=== PATIENT | female | born 1940 | race American Indian/Alaskan Native ===

== ENCOUNTER 2019-12-16 08:01 | Outpatient (CLI) | payer MEDICARE, OTHER ==
[2019-12-16 11:41] LABS: BASOPHILS # (AUTO) 0.1 10^3/uL (0.0-0.1); BASOPHILS % (AUTO) 1.2 %; EOSINOPHILS # (AUTO) 0.1 10^3/uL (0.0-0.7); EOSINOPHILS % (AUTO) 2.6 %; HGB - HEMOGLOBIN 13.7 g/dL (12.0-16.0); LYMPHOCYTES # (AUTO) 1.2 10^3/uL (1.5-3.5); LYMPHOCYTES % (AUTO) 27.6 %; MEAN CORPUSCULAR HEMOGLOBIN 31.8 pg (27.0-31.0); MEAN CORPUSCULAR HGB CONC 32.5 g/dL (32.0-36.0); MEAN CORPUSCULAR VOLUME 97.9 fL (81.0-99.0); MEAN PLATELET VOLUME 10.5 fL (7.9-10.8); MONOCYTES # (AUTO) 0.6 10^3/uL (0.0-1.0); MONOCYTES % (AUTO) 14.9 %; NEUTROPHILS # (AUTO) 2.3 10^3/uL (1.5-6.6); NEUTROPHILS % (AUTO) 53.5 %; PLT - PLATELET COUNT 219 10^3/uL (130-450); RED BLOOD COUNT 4.31 10^6/uL (4.20-5.40); RED CELL DISTRIBUTION WIDTH 12.6 % (12.0-15.0); WHITE BLOOD COUNT 4.2 x10^3/uL (4.8-10.8)
[2019-12-16 11:54] LABS: ALBUMIN/GLOBULIN RATIO 1.3 (1.0-2.2); ALKALINE PHOSPHATASE 56 IU/L (42-121); ALT ALANINE AMINOTRANSFERASE 17 IU/L (10-60); AST ASPARTATE AMINOTRANSFERASE 23 IU/L (10-42); BILIRUBIN,TOTAL 0.7 mg/dL (0.2-1.0); BUN - BLOOD UREA NITROGEN 10 mg/dL (6-20); CALCIUM 9.4 mg/dL (8.5-10.3); CARBON DIOXIDE - CO2 27 mmol/L (21-32); CHLORIDE 102 mmol/L (101-111); CHOL/HDL RATIO 4.3 (<4.4); CHOLESTEROL 238 mg/dL; CREATININE 0.7 mg/dL (0.4-1.0); GLUCOSE 102 mg/dL (70-100); HDL CHOLESTEROL 56 mg/dL; LDL CHOLESTEROL,CALCULATED 162 mg/dL; LDL/HDL RATIO 2.9 (<4.4); SODIUM 137 mmol/L (135-145); TOTAL PROTEIN 7.1 g/dL (6.7-8.2); VLDL CHOLESTEROL 20 mg/dL
== END 2019-12-16 23:59 | disposition home or self-care (01) ==
LOC: LAB.WCP 08:01
PROVIDERS: ATTEND Family Medicine
DX: I10 Essential (primary) hypertension (principal); E78.5 Hyperlipidemia, unspecified
CPT/HCPCS: 36415; 80053; 80061; 83721; 84443; 85025

== ENCOUNTER 2020-10-12 13:03 | Outpatient (CLI) | payer MEDICARE, OTHER ==
--- NOTE | 2020-10-12 14:37 | XRAY Report ---
PROCEDURE: Wrist 3 View RT INDICATIONS: RIGHT WRIST PAIN S/P FALL TECHNIQUE: 3 views of the wrist were acquired. COMPARISON: None. FINDINGS: Bones: Acute impacted comminuted fracture involving distal radius is seen extending to the radiocarpa l joint space. Shortening of distal radial shaft is noted. There is also slightly displaced fracture involving base of ulnar styloid. Diffuse osteopenia. Post-ORIF changes are seen in fourth metacarpal shaft. 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 No suspicious bony lesions. Soft tissues: No suspicious soft tissue calcifications. IMPRESSION: Acute impacted comminuted distal radial fracture and ulnar styloid fracture as above. Reviewed by: Marko Watson MD on 10/12/2020 2:35 PM PDT Approved by: Marko Watson MD on 10/12/2020 2:35 PM PDT Station ID: [id number]
== END 2020-10-12 23:59 | disposition home or self-care (01) ==
LOC: DI.N 13:03
PROVIDERS: ATTEND Nurse Practitioner
DX: S52.501A Unspecified fracture of the lower end of right radius, initial encounter for closed fracture (principal); S52.614A Nondisplaced fracture of right ulna styloid process, initial encounter for closed fracture; W19.XXXA Unspecified fall, initial encounter

== ENCOUNTER 2020-10-23 08:15 | Observation (INO) | payer MEDICARE, OTHER ==
[2020-10-23] MEDS ORDERED: SODIUM CHLORIDE 0.9% 1,000 ML IV STA (09:07)
--- NOTE | 2020-10-23 09:10 | ED Physician Documentation ---
PD HPI FOCAL NEURO - Stated complaint Stated Complaint: CONFUSION/OFF BALANCE - Chief complaint Chief Complaint: Neuro - History obtained from History obtained from: Patient - History of Present Illness Timing - onset: Enter time (714), Today Timing - duration: Minutes (15) Timing - details: Abrupt onset, Now resolved Severity of deficit: Moderate Weakness: No: Face, Arm, Hand, Leg, Foot, Right, Left Numbness: No: Face, Arm, Hand, Leg, Foot, Right, Left Associated symptoms: No: Headache, Nausea / vomiting, Seizure, Syncope, Fall, Head injury, Chest pain, Neck pain, Back pain, Fever, Other Contributing factors: negative: Anticoagulated, Vascular dz, Atrial fibrillation, Prosthetic heart valve Baseline status: positive: A&OX3, ambulatory, indep Similar symptoms before: Has not had sx before Recently seen: Not recently seen - Additional information Additional information: Previously well 80-year-old female who looks young for her age was in the gym this morning on a recumbent bike when she was trying to talk to her friend next to her. She was having some difficulty forming her words. She states that she was able to find the words she was trying to say she was able to understand what was being said to her but she was having some trouble forming the words with her mouth. She got off of the recumbent bike and with help of her friend she went out to her car took some aspirin and by the time she got done with that her symptoms were resolved. She feels normal now. She does state that she has had some diarrhea for the past month and her has recently . She has otherwise been well. She did not take her usual Gatorade yesterday. 2 weeks ago when she was getting deal for her she stepped back into a ditch fell and broke her right wrist. Is currently in a splint. Review of Systems Constitutional: denies: Fever Eyes: denies: Decreased vision Ears: denies: Ear pain Nose: denies: Rhinorrhea / runny nose, Congestion Throat: denies: Sore throat Cardiac: denies: Chest pain / pressure, Palpitations Respiratory: denies: Dyspnea, Cough GI: reports: Diarrhea. denies: Abdominal Pain, Nausea, Vomiting : denies: Dysuria, Frequency Skin: denies: Rash Musculoskeletal: denies: Neck pain, Back pain, Extremity pain Neurologic: reports: Difficulty speaking. denies: Generalized weakness, Focal weakness, Numbness, Syncope, Seizure, Confused, Altered mental status, Headache, Head injury, LOC PD PAST MEDICAL HISTORY - Past Medical History Past Medical History: Yes Cardiovascular: Hypertension Respiratory: None Neuro: None Endocrine/Autoimmune: None GI: None SECURITY MANAGEMENT SPECIALIST: None : None HEENT: None Psych: None Musculoskeletal: None Derm: None - Past Surgical History Past Surgical History: Yes /SECURITY MANAGEMENT SPECIALIST: Oophrectomy HEENT: Tonsil/Adenoidectomy - Present Medications Home Medications: Ambulatory Orders Medication Instructions Recorded Confirmed No Known Home Medications 10/23/20 10/23/20 - Allergies Allergies/Adverse Reactions: Allergies Allergy/AdvReac Type Severity Reaction Status Date / Time No Known Drug Allergies Allergy Verified 10/23/20 08:25 - Social History Does the pt smoke?: No Smoking Status: Never smoker Does the pt drink ETOH?: No Does the pt have substance abuse?: No - Immunizations Immunizations are current?: Yes PD ED PE NORMAL - Vitals Vital signs reviewed: Yes (hypertensive ) - General General: Alert and oriented X 3, No acute distress, Well developed/nourished - HEENT HEENT: Atraumatic, PERRL, EOMI - Neck Neck: Supple, no meningeal sign, No bony TTP - Cardiac Cardiac: RRR, Other (2/6 holosystolic murmer at LSB) - Respiratory Respiratory: No respiratory distress, Clear bilaterally - Abdomen Abdomen: Soft, Non tender - Back Back: No CVA TTP, No spinal TTP - Derm Derm: Normal color, Warm and dry - Extremities Extremities: No deformity, No edema, Other (The right wrist is in a splint.) - Neuro Neuro: Alert and oriented X 3, aerologist 2-12 intact, No motor deficit, No sensory deficit, Normal speech Eye Opening: Spontaneous Motor: Obeys Commands Verbal: Oriented GCS Score: 15 - Psych Psych: Normal mood, Normal affect NIHSS - Time Time: 09:00 - Level of Consciousness Level of consciousness: (0) Alert, Keenly responsive LOC Questions: (0) Answers both Q's correct LOC Commands: (0) Performs both correctly - Gaze Best Gaze: (0) Normal - Visual Visual: (0) No loss - Facial Palsy Facial Palsy: (0) Normal, symmetrical movement - Motor Arms (both separate) Motor Arm (right): (0) No drift Motor Arm (left): (0) No drift - Motor Legs (both separate) Motor Leg (right): (0) No drift Motor Leg (left): (0) No drift - Limb Ataxia Limb Ataxia: (0) Absent - Sensory Sensory: (0) Normal - Best Language Best Language: (0) No aphasia - Dysarthria Dysarthria: (0) Normal - Extinction and Inattention (formally neg Extinction and inattention: (0) No abnormality - Total Score/Results Total Score/Result: 0 Results - Vitals Vitals: Vital Signs - 24 hr 10/23/20 10/23/20 10/23/20 08:27 08:52 10:04 Temperature 36.4 C L Heart Rate 76 73 75 Respiratory 16 12 22 Rate Blood Pressure 193/95 H 174/88 H 169/98 H O2 Saturation 97 96 96 Oxygen O2 Source Room air - EKG (time done) 0916 Rate: Rate (enter#) (61) Rhythm: Other (ventricular trigeminy) Ischemia: Normal ST segments Compare to prior EKG: Old EKG unavailable Computer interpretation: Disagree with computer (The lateral T-waves are normal) - Labs Labs: Laboratory Tests 10/23/20 10/23/20 10/23/20 08:50 08:50 09:20 WBC 5.5 RBC 4.45 Hgb 14.4 Hct 43.2 MCV 97.1 MCH 32.4 H MCHC 33.3 RDW 12.2 Plt Count 233 MPV 9.8 Neut # (Auto) 3.5 Lymph # (Auto) 1.1 L [place] # (Auto) 0.6 Eos # (Auto) 0.1 Baso # (Auto) 0.1 Absolute Nucleated RBC 0.00 Nucleated RBC % 0.0 Sodium 136 Potassium 4.3 Chloride 99 L Carbon Dioxide 29 Anion Gap 8.0 BUN 13 Creatinine 0.7 Estimated GFR (MDRD) 80 L Glucose 96 Calcium 9.5 Total Bilirubin 1.1 H AST 23 ALT 17 Alkaline Phosphatase 49 Total Protein 7.4 Albumin 4.1 Globulin 3.3 Albumin/Globulin Ratio 1.2 Lipase 51 Urine Color Urine Clarity Urine pH Ur Specific [place] Urine Protein Urine Glucose (UA) Urine Ketones Urine Occult Blood Urine Nitrite Urine Bilirubin Urine Urobilinogen Ur Leukocyte Esterase Urine RBC Urine WBC Ur Squamous Epith Cells Urine Bacteria Ur Microscopic Review Urine Culture Comments Nasal Adenovirus (PCR) NOT DETECTED Nasal B. parapertussis DNA (PCR) NOT DETECTED Nasal Coronavir 229E PCR NOT DETECTED Nasal Coronavir HKU1 PCR NOT DETECTED Nasal Coronavir NL63 PCR NOT DETECTED Nasal Coronavir OC43 PCR NOT DETECTED Nasal Enterovir/Rhinovir PCR NOT DETECTED Nasal Influenza B PCR NOT DETECTED Nasal Influenza A PCR NOT DETECTED Nasal Parainfluen 1 PCR NOT DETECTED Nasal Parainfluen 2 PCR NOT DETECTED Nasal Parainfluen 3 PCR NOT DETECTED Nasal Parainfluen 4 PCR NOT DETECTED Nasal RSV (PCR) NOT DETECTED Nasal B.pertussis DNA PCR NOT DETECTED Nasal C.pneumoniae (PCR) NOT DETECTED Tony Human Metapneumo PCR NOT DETECTED Nasal M.pneumoniae (PCR) NOT DETECTED Nasal SARS-CoV-2 (PCR) NOT DETECTED 10/23/20 10:05 WBC RBC Hgb Hct MCV MCH MCHC RDW Plt Count MPV Neut # (Auto) Lymph # (Auto) [place] # (Auto) Eos # (Auto) Baso # (Auto) Absolute Nucleated RBC Nucleated RBC % Sodium Potassium Chloride Carbon Dioxide Anion Gap BUN Creatinine Estimated GFR (MDRD) Glucose Calcium Total Bilirubin AST ALT Alkaline Phosphatase Total Protein Albumin Globulin Albumin/Globulin Ratio Lipase Urine Color YELLOW Urine Clarity CLEAR Urine pH 7.0 Ur Specific [place] 1.015 Urine Protein NEGATIVE Urine Glucose (UA) NEGATIVE Urine Ketones NEGATIVE Urine Occult Blood NEGATIVE Urine Nitrite NEGATIVE Urine Bilirubin NEGATIVE Urine Urobilinogen 0.2 (NORMAL) Ur Leukocyte Esterase TRACE H Urine RBC 0-5 Urine WBC 0-3 Ur Squamous Epith Cells FEW Squamous Urine Bacteria Rare Ur Microscopic Review INDICATED Urine Culture Comments INDICATED Nasal Adenovirus (PCR) Nasal B. parapertussis DNA (PCR) Nasal Coronavir 229E PCR Nasal Coronavir HKU1 PCR Nasal Coronavir NL63 PCR Nasal Coronavir OC43 PCR Nasal Enterovir/Rhinovir PCR Nasal Influenza B PCR Nasal Influenza A PCR Nasal Parainfluen 1 PCR Nasal Parainfluen 2 PCR Nasal Parainfluen 3 PCR Nasal Parainfluen 4 PCR Nasal RSV (PCR) Nasal B.pertussis DNA PCR Nasal C.pneumoniae (PCR) Tony Human Metapneumo PCR Nasal M.pneumoniae (PCR) Nasal SARS-CoV-2 (PCR) - Rads (name of study) CT head Radiology: Prelim report reviewed (Impression: No serafin, acute intracranial abnormality is identified. 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 If there is strong clinical concern for stroke, please consider dedicated MRI for further evaluation age-appropriate brain parenchymal volume loss and chronic small ve), EMP read indepedently, See rad report Procedures - IVC sono (time) 0900 Bedside IVC sono: IVC measures (cm) (1.02), IVC collapsed c insp (cm) (complete), Dehydration (est 1-2 ligter deficit) PD MEDICAL DECISION MAKING - ED course Complexity details: reviewed results, re-evaluated patient, considered differential, d/w patient ED course: 80-year-old previously well female with a TIA this morning has resolved her symptoms. Here in the emergency department she was found to be dehydrated on interrogation the inferior vena cava and she has been administered saline. She remains asymptomatic. She had this TIA under exertion and resolved symptoms with rest. I did find she had a murmur on examination. On evaluation today her CT scan does show what looks like a prior infarct. She has no recollection of strokelike symptoms. I have asked our hospitalist Dr. Winchesterf to put the patient into the hospital for completion of the stroke work-up and he is in agreement. Departure - Departure Disposition: ED Place in Observation Clinical Impression: TIA (transient ischemic attack), Dehydration Discharge Date/Time: 10/23/20 11:35
[2020-10-23 09:11] LABS: BASOPHILS # (AUTO) 0.1 10^3/uL (0.0-0.1); BASOPHILS % (AUTO) 1.3 %; EOSINOPHILS # (AUTO) 0.1 10^3/uL (0.0-0.7); HCT - HEMATOCRIT 43.2 % (37.0-47.0); HGB - HEMOGLOBIN 14.4 g/dL (12.0-16.0); LYMPHOCYTES # (AUTO) 1.1 10^3/uL (1.5-3.5); LYMPHOCYTES % (AUTO) 20.7 %; MEAN CORPUSCULAR HEMOGLOBIN 32.4 pg (27.0-31.0); MEAN CORPUSCULAR HGB CONC 33.3 g/dL (32.0-36.0); MEAN CORPUSCULAR VOLUME 97.1 fL (81.0-99.0); MEAN PLATELET VOLUME 9.8 fL (7.9-10.8); MONOCYTES # (AUTO) 0.6 10^3/uL (0.0-1.0); MONOCYTES % (AUTO) 11.3 %; NEUTROPHILS # (AUTO) 3.5 10^3/uL (1.5-6.6); NEUTROPHILS % (AUTO) 64.5 %; PLT - PLATELET COUNT 233 10^3/uL (130-450); RED BLOOD COUNT 4.45 10^6/uL (4.20-5.40); RED CELL DISTRIBUTION WIDTH 12.2 % (12.0-15.0); WHITE BLOOD COUNT 5.5 x10^3/uL (4.8-10.8)
[2020-10-23 09:24] LABS: ALBUMIN 4.1 g/dL (3.2-5.5); ALBUMIN/GLOBULIN RATIO 1.2 (1.0-2.2); BILIRUBIN,TOTAL 1.1 mg/dL (0.2-1.0); CALCIUM 9.5 mg/dL (8.5-10.3); CREATININE 0.7 mg/dL (0.4-1.0); POTASSIUM 4.3 mmol/L (3.5-5.0); TOTAL PROTEIN 7.4 g/dL (6.7-8.2)
--- NOTE | 2020-10-23 10:04 | CT Report ---
PROCEDURE: HEAD WO INDICATIONS: trasnsient dysarthria TECHNIQUE: Noncontrast 4.5 mm thick angled axial sections acquired from the foramen magnum to the vertex. For r adiation dose reduction, the following was used: automated exposure control, adjustment of mA and/or kV according to patient size. COMPARISON: None. FINDINGS: Image quality: There is streak artifact seen through the skull base. CSF spaces: Basal cisterns are patent. No extra-axial fluid collections. Ventricles are normal in size and shape. Brain: No midline shift. No intracranial masses or hemorrhage. Rizo-white matter interface is norm al. There is a remote appearing right frontal lobe infarct seen medially. Mild, symmetric calcificat ion can be seen of the basal ganglia, which is considered normal for a patient of this age. Skull and face: Calvarium and visualized facial bones are intact, without suspicious lesions. Sinuses: Visualized sinuses and mastoids are clear. IMPRESSION: No serafin, acute intracranial abnormality is identified. 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 If there is strong clinical concern for a stroke, please consider a dedicated brain MRI for further e valuation (assuming that there is no contraindication to MRI). Age-appropriate brain parenchymal volume loss and chronic small vessel ischemic change can be seen. Reviewed by: Rafael Wang MD on 10/23/2020 9:02 AM [facility] Approved by: Rafael Wang MD on 10/23/2020 9:02 AM [facility] Station ID: [id number]
[2020-10-23 10:14] LABS: BILIRUBIN,URINE NEGATIVE (NEGATIVE); GLUCOSE, URINE (UA) NEGATIVE (NEGATIVE); KETONES,URINE (UA) NEGATIVE (NEGATIVE); LEUKOCYTE ESTERASE, URINE TRACE (NEGATIVE); NITRITE,URINE NEGATIVE (NEGATIVE); OCCULT BLOOD,URINE NEGATIVE (NEGATIVE); PROTEIN,URINE NEGATIVE (NEGATIVE); UROBILINOGEN,URINE 0.2 (NORMAL) E.U./dL (NORMAL)
[2020-10-23 10:16] LABS: CLARITY,URINE CLEAR (CLEAR)
[2020-10-23 10:19] LABS: B. PARAPERTUSSIS- RESP PCR PAN NOT DETECTED; B. PERTUSSIS- RESP PCR PANEL NOT DETECTED; C. PNEUMONIAE- RESP PCR PANEL NOT DETECTED; CORONAVIRUS 229E-RESP PCR NOT DETECTED; CORONAVIRUS HKU1-RESP PCR NOT DETECTED; CORONAVIRUS NL63-RESP PCR NOT DETECTED; CORONAVIRUS OC43-RESP PCR NOT DETECTED; HUMAN METAPNEUMOVIRUS NOT DETECTED; INFLUENZA A- RESP PCR PANEL NOT DETECTED; INFLUENZA B - RESP PCR PANEL NOT DETECTED; M. PNEUMONIAE- RESP PCR PANEL NOT DETECTED; PARAINFLUENZA VIRUS 1 NOT DETECTED; PARAINFLUENZA VIRUS 2 NOT DETECTED; PARAINFLUENZA VIRUS 3 NOT DETECTED; PARAINFLUENZA VIRUS 4 NOT DETECTED; RHINOVIRUS/ENTEROVIRUS NOT DETECTED; RSV- RESP PCR PANEL NOT DETECTED; SARS-CoV-2 -RESP PCR PANEL NOT DETECTED
[2020-10-23 10:24] LABS: BACTERIA,URINE Rare /HPF (None Seen); RBC,URINE 0-5 /HPF (0-5); SQUAMOUS EPITHELIAL CELL,UR FEW Squamous (<= Few); WBC,URINE 0-3 /HPF (0-5)
[2020-10-23] MEDS ORDERED: ACETAMINOPHEN 325 MG TABLET PO PRN (10:50)
[2020-10-23] MEDS ORDERED: SODIUM CHLORIDE FLUSH 0.9% 10 ML SYRINGE IVP PRN (10:50)
[2020-10-23] MEDS ORDERED: ONDANSETRON ODT 4 MG TABLET TL PRN (10:50)
[2020-10-23] MEDS ORDERED: ONDANSETRON 4 MG/2 ML VIAL IVP PRN (10:50)
--- NOTE | 2020-10-23 10:54 | HISTORY & PHYSICAL EXAMINATION ---
Chief Complaint - Chief Complaint Chief Complaint: Difficulty speaking History of Present Illness - Admitted From Admitted From:: Home - History Obtained From Records Reviewed: Yes History obtained from: Patient, ER Physician, EMR - History of Present Illness HPI Comment/Other: This is a 80-year-old female with a past medical history significant for hypertension who presents today complaining of difficulty speaking that began at about 7:15 AM this morning. She states that she is at the gym when she was with a girl on the bike when she felt like she had difficulty getting her words out. She states she maybe took 2 baby aspirins and shortly after her symptoms resolved. She feels back to her baseline. She denied any focal deficits or weakness during that time. She denies a prior history of stroke. She normally does not take aspirin. She denies any cardiac history. She states she been trying to be quite active for the most part and goes to the gym regularly. She did fall about 2 weeks ago when getting deal for her 's grave and she broke her right wrist. It has since been in a splint. She states over the past month she has had diarrhea in the morning usually having 2-3 bowel movements when she wakes up which resolves throughout the day. This is been going on now for about 1 month. She has had no abdominal pain. She does note that her back in July. They were for 60 years. In the emergency department, she had a CT of the head which showed no acute abnormalities but there was evidence of an old infarct. CTA of the head and neck showed 70% stenosis of the right intracranial internal carotid artery and 50% of the left intracranial internal carotid artery. Given the above findings, medicine was consulted for admission. I did discuss goals of care with the patient and she would like to be a DNR. History - Past Medical History Cardiovascular: reports: Hypertension Respiratory: reports: None Neuro: reports: None Endocrine/Autoimmune: reports: None GI: reports: None BOILERMAKER ASSEMBLY AND ERECTION: reports: None : reports: None HEENT: reports: None Psych: reports: None Musculoskeletal: reports: None Derm: reports: None MRSA Hx?: No - Past Surgical History /BOILERMAKER ASSEMBLY AND ERECTION: reports: Oophrectomy HEENT: reports: Tonsil/Adenoidectomy - Family & Social History Family History Comment/Other: She reports her father had a history of esophageal cancer. He was a smoker. She denies any cardiac history or family history of stroke. Living arrangement: At home Living Situation: Alone Social History Notes: She lives at home alone after her of 60 years 2 months ago. She smoked a pack a week for about 20 years but quit over 40 years ago. She rarely drinks alcohol. Meds/Allgy - Home Medications Home Medications: Ambulatory Orders Medication Instructions Recorded Confirmed No Known Home Medications 10/23/20 10/23/20 - Allergies Allergies/Adverse Reactions: Allergies Allergy/AdvReac Type Severity Reaction Status Date / Time No Known Drug Allergies Allergy Verified 10/23/20 08:25 Review of Systems - Constitutional Constitutional: denies: Fever, Chills - Eyes Eyes: denies: Blurred vision, Vision loss - Cardiovascular Cariovascular: denies: Chest pain, Edema, Lightheadedness, Exertional dyspnea, Decr. exercise tolerance - Respiratory Respiratory: denies: SOB at rest, SOB with exertion - Gastrointestinal Gastrointestinal: reports: Diarrhea, Change in bowel habits. denies: Abdominal pain, Constipation, Nausea, Vomiting - Genitourinary Genitourinary: denies: Dysuria, Frequency, Urgency, Hematuria - Musculoskeletal Musculoskeletal: reports: Limited range of motion, Joint pain - Integumentary Integumentary: denies: Rash - Neurological Neurological: reports: Slurred speech. denies: General weakness, Focal weakness, Headache, Dizziness, Numbness - All Other Systems All Other Systems: reports: Reviewed and negative Prior Level of Functionality: She is independent with her ADLs. Exam - Vital Signs Reviewed Vital Signs: Yes Vital Signs: Vital Signs x48h Temp Pulse Resp BP Pulse Ox 10/23/20 10:04 75 22 169/98 H 96 10/23/20 08:52 73 12 174/88 H 96 10/23/20 08:27 36.4 C L 76 16 193/95 H 97 - Physical Exam General Appearance: positive: No acute distress, Alert Eyes Bilateral: positive: Normal inspection, Conjunctivae nml ENT: positive: ENT inspection nml Neck: positive: Nml inspection Respiratory: positive: No respiratory distress. negative: Wheezes, Rales Cardiovascular: positive: Regular rate & rhythm, No murmur. negative: Tachycardia Abdomen: positive: Non-tender, Nml bowel sounds, No distention. negative: Tenderness Skin: positive: Warm, Dry Extremities: positive: Full ROM, No pedal edema Neurologic/Psychiatric: positive: Oriented x3, CN's nml (2-12), Motor nml, Sensation nml. negative: Disoriented to person, Disoriented to place, Disoriented to time, Facial droop, Slurred/abnml speech Conclusion/Plan - Problem List (1) TIA (transient ischemic attack) Conclusion/Plan: The concern is for TIA given her symptoms have now resolved. CT the head was unremarkable. CTA of the neck showed no significant stenosis. CTA of the head did show irregularities in the bilateral internal carotid arteries with about 50% stenosis on the left and 70% on the right. She has already received aspirin per the emergency department physician. We will place her in observation and I have ordered for an MRI to be obtained. We will start her on 81 mg of aspirin and Lipitor 40 mg. We will order an echocardiogram. Check A1c and lipid panel. Her blood pressure is elevated and we will allow permissive hypertension until stroke is ruled out. (2) Hypertension Conclusion/Plan: Her blood pressure is elevated with systolics in the 160's she does report a history of hypertension but is not on antihypertensives. We will left wrist hypertension till we have the MRI results back. If there is no evidence of stroke we will start her on amlodipine. - Lab Results Lab results reviewed: Yes Fish Bones: 10/23/20 08:50 10/23/20 08:50 - Diagnostic Imaging Results Diagnostic Imaging Results: positive: Final report reviewed - EKG Results EKG Interpreted Independently: Yes EKG Comparison: No prior EKG EKG Findings: EKG reveals a sinus rhythm with ventricular trigeminy. Core Measures - Anticipated LOS I expect patient to be DC'd or transferred within 96 hours.: Yes - Issues Hospital Issues and Management Plan: 80-year-old female presents with dysarthria likely due to TIA. Symptoms are now resolved. Placed in observation for MRI, echo, telemetry. - DVT/VTE - Prophylaxis VTE/DVT Device ordered at admit?: Yes VTE/DVT Prophylaxis med ordered at admit?: Yes
[2020-10-23] MEDS ORDERED: IOPAMIDOL-300 50 ML VIAL ONE (11:16)
--- NOTE | 2020-10-23 11:25 | PHARMACY PROGRESS NOTE ---
- Best Possible Medication History Admit Date and Time: 10/23/20 1050 Processed by: Nursing No home meds per RN As the person ultimately responsible for medication therapy, providers are able to order a medication from an existing home medication list in [facility] via the "Reconcile Routine" prior to Confirmation of that medication by phlebotomy support tech. Such practice is discouraged except when the physician, in their clinical judgment, deems that a medical need exists for a medication without regard to previous use.
--- NOTE | 2020-10-23 11:56 | CT Report ---
PROCEDURE: ANGIO NECK W INDICATIONS: transient dysarthria CONTRAST: IV CONTRAST: Isovue 300 ml: 80 PO CONTRAST: *NO PO CONTRAST TECHNIQUE: After the administration of intravenous contrast, 1.5 mm axial sections acquired from the aortic arch to the [place]. Coronal 3-D maximum intensity projection (MIP) and/or volume rendering ref ormats were then performed. For radiation dose reduction, the following was used: automated exposur e control, adjustment of mA and/or kV according to patient size. COMPARISON: Relation is made with the accompanying head CT and head CT angiogram, 10/22/2020 FINDINGS: Image quality: Excellent. Carotid system: The great vessels demonstrate a conventional anatomy as they arise from the aortic a rch. The origins of the common carotid arteries appear patent. The common carotid arteries demonstr ate normal calibers and courses. The bifurcation regions appear normal bilaterally. The internal ca rotid arteries demonstrate normal caliber and course. Posterior circulation: The origins of the vertebral arteries appear patent. The more superior porti ons of the vertebral arteries demonstrate normal course and caliber. They join to form a normal appe aring basilar artery. Soft tissues: Visualized neck soft tissues demonstrate no suspicious abnormalities. A 12 mm low-den sity focus can be seen within the right thyroid, as on series 2 image 100. Bones: No suspicious bony lesions. Visualized cervical spine appears normally aligned. Moderate c ervical spine degenerative changes are seen. T4 vertebra plana can be seen. IMPRESSION: No hemodynamically significant stenosis can be seen within the arteries of the neck. T4 vertebra plana. 1.2 cm right thyroid nodule incidentally noted. By published criteria, no specific imaging follow-up is recommended, although attention should be paid to this focus on a future follow-up studies. The estimate of stenosis included in the report of the imaging study was calculated using the NASCET method Reviewed by: Rafael Wang MD on 10/23/2020 10:54 AM [facility]ELY[facility] Approved by: Rafael Wang MD on 10/23/2020 10:54 AM [facility]ELY[facility] Station ID: [id number]
--- NOTE | 2020-10-23 11:59 | CT Report ---
PROCEDURE: ANGIO HEAD W/WO INDICATIONS: transient dysarthria CONTRAST: IV CONTRAST: Isovue 300 ml: 80 PO CONTRAST: *NO PO CONTRAST TECHNIQUE: Precontrast 4.5 mm thick angled axial sections acquired from the foramen magnum to the vertex. Afte r the administration of intravenous contrast, 1 mm thick sections acquired through the [place] is. Postcontrast 4.5 mm thick sections then re-acquired from the foramen magnum to the vertex. 3-di mensional sqxekrn-trtgddmeo-ediyroopgq (MIP) and/or volume rendering reformats were acquired of the c entral intracranial vasculature. For radiation dose reduction, the following was used: automated ex posure control, adjustment of mA and/or kV according to patient size. COMPARISON: Correlation is made with the accompanying head CT and neck CT angiogram, 10/22/2020. FINDINGS: Image quality: Excellent. Anterior circulation: Intracranial internal carotid arteries demonstrate atherosclerotic calcificati on and irregularity, with approximately 50% narrowing on the left at approximately 70% narrowing on t he right. Note is made of a diminutive right A1 segment, with a correspondingly robust left A1 segmen t. This is considered to be a developmental variant of no clinical consequence. The flow within the paired anterior cerebral arteries is otherwise normal and symmetric. The flow within the middle cere bral arteries is normal and symmetric. The anterior communicating artery is seen. No aneurysms are seen. Posterior circulation: Visualized portions of the vertebral arteries demonstrate normal caliber, and join to form a normal appearing basilar artery. Flow within the posterior cerebral arteries is norm al and symmetric. No aneurysms are seen. CSF spaces: Ventricles are normal in size and shape. Basal cisterns are patent. No extra-axial flu id collections. Brain: No midline shift. No intracranial bleeds or masses. Rizo-white matter interface appears int act. Skull and face: Calvarium and facial bones appear intact, without suspicious lesions. Sinuses: Visualized sinuses and mastoids are clear. IMPRESSION: No acute intracranial arterial stenosis can be seen. Note is made of generalized calcification and irregularity of the intracranial internal carotid arter ies, with approximately 50% narrowing on the left and approximately 70% narrowing on the right. 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 Reviewed by: Rafael Wang MD on 10/23/2020 10:57 AM AKDT Approved by: Rafael Wang MD on 10/23/2020 10:57 AM EVELYN Station ID: [id number]
[2020-10-23] MEDS ORDERED: IOPAMIDOL-300 50 ML VIAL IVP ONE (13:03)
--- NOTE | 2020-10-23 13:26 | MRI Report ---
PROCEDURE: Brain W/O INDICATIONS: Neurodeficit, resolved TECHNIQUE: Noncontrast axial T1 spin echo, axial T2 fast spin echo, sagittal and axial FLAIR, coronal T2 fast sp in echo, axial gradient echo, axial diffusion and ADC through the brain. COMPARISON: CT angiogram of the head and neck obtained 10/24/2019 FINDINGS: Image quality: Excellent. CSF Spaces: Basal cisterns are patent. No extra-axial fluid collections. Ventricles are normal in size and shape. Brain: There is a subacute infarct in the right frontal lobe involving the cingulate gyrus (series 90 6 images 16-19). Associated FLAIR signal abnormality. No other recent ischemia demonstrated. No signi ficant mass effect or midline shift. There is advanced global cerebral volume loss and rhkjbdxe-rg-ve zehra chronic microvascular ischemic change. No abnormal intracranial susceptibility. Skull and face: Calvarium has normal marrow signal. Orbits appear normal. Sinuses: Sinuses and mastoids are clear. 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 Advanced cerebral volume loss with moderate to severe chronic microvascular ischemic changes. Reviewed by: Dragan Lynch MD on 10/23/2020 1:25 PM PDT Approved by: Dragan Lynch MD on 10/23/2020 1:25 PM PDT Station ID: [id number]
[2020-10-23] MEDS: SODIUM CHLORIDE FLUSH 0.9% 10 ML SYRINGE IVP SCH (20:10)
[2020-10-23] MEDS ORDERED: ATORVASTATIN 40 MG TABLET PO SCH (21:00)
[2020-10-24 05:49] LABS: BASOPHILS # (AUTO) 0.1 10^3/uL (0.0-0.1); BASOPHILS % (AUTO) 1.1 %; EOSINOPHILS # (AUTO) 0.2 10^3/uL (0.0-0.7); EOSINOPHILS % (AUTO) 3.3 %; HCT - HEMATOCRIT 45.2 % (37.0-47.0); HGB - HEMOGLOBIN 14.4 g/dL (12.0-16.0); LYMPHOCYTES # (AUTO) 1.3 10^3/uL (1.5-3.5); LYMPHOCYTES % (AUTO) 22.9 %; MEAN CORPUSCULAR HEMOGLOBIN 31.8 pg (27.0-31.0); MEAN CORPUSCULAR HGB CONC 31.9 g/dL (32.0-36.0); MEAN CORPUSCULAR VOLUME 99.8 fL (81.0-99.0); MEAN PLATELET VOLUME 9.6 fL (7.9-10.8); MONOCYTES # (AUTO) 0.7 10^3/uL (0.0-1.0); MONOCYTES % (AUTO) 11.8 %; NEUTROPHILS # (AUTO) 3.4 10^3/uL (1.5-6.6); NEUTROPHILS % (AUTO) 60.7 %; PLT - PLATELET COUNT 232 10^3/uL (130-450); RED BLOOD COUNT 4.53 10^6/uL (4.20-5.40); RED CELL DISTRIBUTION WIDTH 12.3 % (12.0-15.0); WHITE BLOOD COUNT 5.5 x10^3/uL (4.8-10.8)
[2020-10-24 05:58] LABS: CREATININE 0.6 mg/dL (0.4-1.0); MAGNESIUM 2.3 mg/dL (1.7-2.8); POTASSIUM 3.9 mmol/L (3.5-5.0)
[2020-10-24 06:06] LABS: CHOL/HDL RATIO 3.8 (<4.4); CHOLESTEROL 236 mg/dL; HDL CHOLESTEROL 62 mg/dL; LDL CHOLESTEROL,CALCULATED 148 mg/dL; LDL/HDL RATIO 2.4 (<4.4); TRIGLYCERIDES 130 mg/dL; VLDL CHOLESTEROL 26 mg/dL
[2020-10-24] MEDS: SODIUM CHLORIDE FLUSH 0.9% 10 ML SYRINGE IVP SCH (07:53)
[2020-10-24] MEDS ORDERED: lisinopriL 5 MG TABLET PO SCH (09:00)
[2020-10-24] MEDS ORDERED: amLODIPine 5 MG TABLET PO SCH (09:00)
[2020-10-24] MEDS ORDERED: ENOXAPARIN 40 MG/0.4 ML SYRINGE SUBQ SCH (09:00)
[2020-10-24] MEDS ORDERED: ASPIRIN CHEW 81 MG TABLET PO SCH (09:00)
[2020-10-24] MEDS ORDERED: atenoloL 25 MG TABLET PO SCH (09:00)
--- NOTE | 2020-10-24 10:31 | Discharge Plan ---
Discharge Plan Problem Reviewed?: Yes Disposition: Home, Self Care Condition: Stable Prescriptions: Atorvastatin [Lipitor] 40 mg PO QPM #30 tablet Clopidogrel [Plavix] 75 mg PO DAILY #90 tablet Aspirin Chewable [St Slim Aspirin] 81 mg PO DAILY #30 tablet atenoloL [Tenormin] 25 mg PO DAILY #30 tablet lisinopriL [Zestril] 20 mg PO DAILY #30 tablet Diet: Regular Activity Restrictions: Activity as Tolerated Instruction Topics: Stroke Ischemic, Stroke Dc Health Concerns: You were admitted to the hospital because of difficulty speaking and concern was for stroke. MRI of your brain confirms that you have a subacute stroke which means you likely had a stroke within the past few weeks. This can explain your symptoms. Fortunately, your symptoms have resolved. We did do a special CT scan of your head which showed that one of your arteries supplying blood to your brain is tight with about 70% blockage. We discussed this with neurology who recommended medical management alone and that there is no role for intervention. It was also noted during this stay that your heart does have extra beats every once in a while. An ultrasound of your heart showed that your heart pump is functioning well and your valves are in good shape. We have put you on a medication called atenolol given your high blood pressure this can also help decrease the frequency of the extra beats Plan of Treatment: Please take 81 mg of aspirin every day as well as Lipitor 40 mg in the evening. This is to help reduce your risk of stroke in the future. You will also need to take Plavix 75 mg every day but this will only be for 3 months and then you will stop it but continue the aspirin indefinitely. It is also recommended that you take lisinopril and atenolol every day as your blood pressure was noted to be elevated and high blood pressure can increase your risk of stroke. The atenolol can also help with the extra beats that your heart has at times. It is also recommended that you have a Holter monitor on an outpatient basis to monitor your heart rhythm to ensure that you do not develop an irregular rhythm called atrial fibrillation which can increase your risk of stroke. Assessment: The patient expressed understanding of the treatment plan. Additional Instructions or Follow Up instructions: Please follow-up with your primary care physician in 1 week. It is recommended that you have a heart monitor for 14 to 30 days to ensure you do not have an abnormal heart rhythm called atrial fibrillation. No Smoking: If you smoke, Please STOP! Call for help. Follow-up with: Jose Manuel Madden MD [Primary Care Provider] -
--- NOTE | 2020-10-24 10:32 | DISCHARGE SUMMARY ---
"Discharge Summary Admit Date: 10/23/20 Discharge Date: 10/24/20 Discharging Provider: Jaime Gordon Primary Care Provider: Jose Manuel Madden Code Status: Do Not Attempt Resuscitation Condition at Discharge: Stable Discharge Disposition: 01 Home, Self Care - DIAGNOSES Admission Diagnoses: TIA Hypertension Discharge Diagnoses with Status of Each Condition: Right frontal lobe stroke Hypertension Hyperlipidemia - HPI History of Present Illness: This is a 80-year-old female with a past medical history significant for hypertension who presents today complaining of difficulty speaking that began at about 7:15 AM this morning. She states that she is at the gym when she was with a girl on the bike when she felt like she had difficulty getting her words out. She states she maybe took 2 baby aspirins and shortly after her symptoms resolved. She feels back to her baseline. She denied any focal deficits or weakness during that time. She denies a prior history of stroke. She normally does not take aspirin. She denies any cardiac history. She states she been trying to be quite active for the most part and goes to the gym regularly. She did fall about 2 weeks ago when getting deal for her 's grave and she broke her right wrist. It has since been in a splint. She states over the past month she has had diarrhea in the morning usually having 2-3 bowel movements when she wakes up which resolves throughout the day. This is been going on now for about 1 month. She has had no abdominal pain. She does note that her back in July. They were for 60 years. In the emergency department, she had a CT of the head which showed no acute abnormalities but there was evidence of an old infarct. CTA of the head and neck showed 70% stenosis of the right intracranial internal carotid artery and 50% of the left intracranial internal carotid artery. Given the above findings, medicine was consulted for admission. I did discuss goals of care with the patient and she would like to be a DNR. - CONSULTS | PROCEDURES Procedures: Echocardiogram revealed an ejection fraction of 55 to 60%. Grade 1 diastolic dysfunction. Right ventricle is normal in size and function. Interatrial septum is intact on color flow imaging. No significant cardiac valve disease. Moderate increase in left atrial volume index - HOSPITAL COURSE Hospital Course: She was admitted for suspected to be a TIA. Her symptoms had already resolved prior to admission. MRI was obtained which showed a subacute right frontal lobe infarct. She was started on aspirin and Lipitor and an echocardiogram was obtained which was unremarkable. She was monitored on telemetry status today and she has been in a sinus rhythm with PVCs. Lipid panel revealed an elevated LDL greater than 130. Her blood pressure was noted to be quite elevated with systolics in the 170s and so she was started on atenolol and lisinopril. The atenolol was also for her frequent PVCs. Given her CT of the head did show the intracranial right ICA stenosis, neurology was contacted at [facility] in [place] who recommended medical management. They recommended adding Plavix to the aspirin for 3months. On discharge, the patient was provided with 90 days of Plavix as well as 81 mg of aspirin. She was asked to take the Plavix for 3 months and then discontinue it but to continue the aspirin and Lipitor indefinitely. It was also recommended that she be considered for a Zio patch or outpatient monitor to look for atrial fibrillation and this was discussed with the patient. On day of discharge, she had no obvious deficits. - ALLERGIES Allergies/Adverse Reactions: Allergies Allergy/AdvReac Type Severity Reaction Status Date / Time No Known Drug Allergies Allergy Verified 10/23/20 08:25 - MEDICATIONS Home Medications: Ambulatory Orders Medication Instructions Recorded Confirmed Aspirin Chewable [St Slim 81 mg PO DAILY #30 tablet 10/24/20 Aspirin] Atorvastatin [Lipitor] 40 mg PO QPM #30 tablet 10/24/20 Clopidogrel [Plavix] 75 mg PO DAILY #90 tablet 10/24/20 atenoloL [Tenormin] 25 mg PO DAILY #30 tablet 10/24/20 lisinopriL [Zestril] 20 mg PO DAILY #30 tablet 10/24/20 - PHYSICAL EXAM AT DISCHARGE General Appearance: positive: No acute distress, Alert Eyes Bilateral: positive: Normal inspection, Conjunctivae nml ENT: positive: ENT inspection nml Neck: positive: Nml inspection Respiratory: positive: No respiratory distress. negative: Wheezes, Rales Cardiovascular: positive: Regular rate & rhythm, No murmur, Extrasystoles. negative: Tachycardia, Bradycardia, Systolic murmur Abdomen: positive: Non-tender, No distention. negative: Tenderness, Guarding, Rebound Skin: positive: Warm, Dry Extremities: positive: No pedal edema, Other (Right wrist splint in place.) Neurologic/Psychiatric: positive: Oriented x3, CN's nml (2-12), Motor nml, Sensation nml. negative: Disoriented to person, Disoriented to place, Disorie nted to time, Facial droop, Slurred/abnml speech Physical Exam Other/Comments: Vital Signs - 24 hr 10/23/20 10/23/20 10/24/20 19:40 23:40 05:00 Temperature 36.8 C 36.5 C 36.3 C L Heart Rate [ 77 Brachial] Heart Rate [ 79 77 Radial] Respiratory 18 16 16 Rate Blood Pressure 132/80 H 137/80 H 153/74 H [Left Brachial artery] O2 Saturation 94 95 98 10/24/20 10/24/20 08:46 11:43 Temperature 36.7 C Heart Rate [ 82 57 L Brachial] Heart Rate [ Radial] Respiratory 16 18 Rate Blood Pressure 179/98 H 134/59 H [Left Brachial artery] O2 Saturation 96 96 Oxygen O2 Source Room air - LABS Result Diagrams: 10/24/20 05:17 10/24/20 05:17 - DIAGNOSTIC IMAGING Diagnostic Imaging Results: Final report reviewed Diagnostic Imaging Results Comments: CTA head showed no acute intracranial arterial stenosis. There was a note made of generalized calcification and irregularity of the intracranial internal carotid arteries, with approximately 50% narrowing on the left and approximately 70% narrowing on the right. CTA of the neck showed no hemodynamically significant stenosis. Head CT showed a remote right frontal lobe infarct seen medially. No acute intracranial abnormality. MRI of the brain showed a subacute right frontal lobe infarct involving predominantly the cingulate gyrus. - FOLLOW UP Follow Up: She was encouraged to follow-up with her primary care physician in 1 week. It was also recommended that she consider a neurology follow-up. Neurology did recommend an outpatient Zio patch or 30 day monitor to look for atrial fibrillation. - TIME SPENT Time Spent in Discharge (Minutes): 34"
[2020-10-24 11:44] VITALS: BP 134/59
[2020-10-24] MEDS ORDERED: CLOPIDOGREL 75 MG TABLET PO SCH (12:00)
[2020-10-24 12:06] LABS: ESTIMATED AVERAGE GLUCOSE 120 mg/dL (70-100); HEMOGLOBIN A1c% 5.8 % (4.27-6.07)
== END 2020-10-24 13:15 | disposition home or self-care (01) ==
LOC: ED 08:15 → MS2 10:50
PROVIDERS: ADMIT Internal Medicine; ATTEND Internal Medicine
DX: I63.9 Cerebral infarction, unspecified (principal); R47.89 Other speech disturbances; I10 Essential (primary) hypertension; R29.700 NIHSS score 0; E78.5 Hyperlipidemia, unspecified; Z66 Do not resuscitate; Z20.822 Contact with and (suspected) exposure to COVID-19; R19.7 Diarrhea, unspecified; Z87.891 Personal history of nicotine dependence; I65.23 Occlusion and stenosis of bilateral carotid arteries; E86.0 Dehydration
CPT/HCPCS: 36415; 70450; 70496; 70498; 70551; 80048; 80053; 80061; 81001; 83036; 83690; 83735; 84484; 85025; 87086; 87631; 93005; 93306; 96360; 96361; 96372; 99284; 99285; A9270; G0378; J1650; Q9967; 0202U; 81003; 83721

== ENCOUNTER 2020-10-24 18:38 | Emergency (ER) | payer MEDICARE, OTHER ==
--- NOTE | 2020-10-24 20:31 | ED Physician Documentation ---
History of Present Illness - Stated complaint Stated Complaint: UNSTEADY ON FEET - Chief complaint Chief Complaint: Neuro - Additonal information Additional information: 80-year-old female returns to the emergency department for evaluation of what she feels was slow speech as well as left leg weakness. She was admitted to our hospital yesterday for concerns of a TIA. At the time of presentation she had reported some left leg weakness and aphasia. CT angio of the head and neck Did not show any acute bleeds though there was concerns for 70% stenosis of the right ICA. Patient was admitted to the hospital. An MRI of the brain did show a right frontal subacute infarct. Neurology was consulted regarding the subacute infarct as well as the ICA stenosis. They recommended medical management only which would include dual aspirin and Plavix for 3 months. She did receive a statin on discharge in order to help manage her hypercholesterolemia and she is to follow-up with neurology as an outpatient. An echo completed here in the hospital did not show any significant stenosis or LV dysfunction. Patient was discharged from the hospital at 2 PM today. She reports that when she went home she felt like she was slurring her words and thought maybe her left leg was weak thus she came back to the ER. However at the time of return to the ER her symptoms have fully resolved. Review of Systems Constitutional: denies: Fever, Chills Eyes: reports: Reviewed and negative Ears: reports: Reviewed and negative Nose: reports: Reviewed and negative Cardiac: reports: Reviewed and negative Respiratory: reports: Reviewed and negative GI: reports: Reviewed and negative : reports: Reviewed and negative Skin: denies: Rash, Lesions Musculoskeletal: denies: Neck pain, Back pain Neurologic: reports: Focal weakness, Difficulty speaking PD PAST MEDICAL HISTORY - Past Medical History Cardiovascular: Hypertension Respiratory: None Neuro: None Endocrine/Autoimmune: None GI: None BODS DEVELOPER: None : None HEENT: None Psych: None Musculoskeletal: None Derm: None - Past Surgical History Past Surgical History: Yes /BODS DEVELOPER: Oophrectomy HEENT: Tonsil/Adenoidectomy - Present Medications Home Medications: Ambulatory Orders Medication Instructions Recorded Confirmed Aspirin Chewable [St Slim 81 mg PO DAILY #30 tablet 10/24/20 10/24/20 Aspirin] Atorvastatin [Lipitor] 40 mg PO QPM #30 tablet 10/24/20 10/24/20 Clopidogrel [Plavix] 75 mg PO DAILY #90 tablet 10/24/20 10/24/20 atenoloL [Tenormin] 25 mg PO DAILY #30 tablet 10/24/20 10/24/20 lisinopriL [Zestril] 20 mg PO DAILY #30 tablet 10/24/20 10/24/20 - Allergies Allergies/Adverse Reactions: Allergies Allergy/AdvReac Type Severity Reaction Status Date / Time No Known Drug Allergies Allergy Verified 10/24/20 18:46 - Social History Does the pt smoke?: No Smoking Status: Never smoker Does the pt drink ETOH?: No Does the pt have substance abuse?: No - Immunizations Immunizations are current?: Yes PD ED PE EXPANDED - General General: Alert, No acute distress, Well developed/nourished - HEENT HEENT: Atraumatic, PERRL, EOMI - Neck Neck: Supple w/out meningeal sx. No: Adenopathy - Cardiac Cardiac: Regular Rate, Radial strong equal, Pedal strong equal, Cap refill < 2 sec - Respiratory Respiratory: Clear to ausultation yany. No: Distress, Labored - Abdomen Abdomen: Normal Bowel sounds - Back Back: Normal exam - Neuro Neuro: Alert and Oriented X 3, CNII-XII intact, Cerebellar nl, Normal gait, Normal finger nose, Normal speech - GCS Eye Opening: Spontaneous Motor: Obeys Commands Verbal: Oriented Total: 15 Results - Vitals Vitals: Vital Signs - 24 hr 10/24/20 18:49 Temperature 36.5 C Heart Rate 57 L Respiratory 18 Rate Blood Pressure 135/69 H O2 Saturation 96 Oxygen O2 Source Room air PD MEDICAL DECISION MAKING - ED course Complexity details: reviewed old records, d/w patient, d/w databases computer consultant (Luis (neurology [facility]) Dr. Mathew (vascular Surgery [facility])) ED course: 80-year-old female presents the emergency department for evaluation of mild aphasia and left leg weakness after she was discharged from our hospital this afternoon. She had been admitted for strokelike deficits. She initially presented to our ER with some left leg weakness as well as a mild aphasia which 100% resolved. CT angio of the neck showed 70% ICA stenosis. Subsequent MRI showed a subacute right frontal infarct. Neurology was consulted by inpatient hospitalist and neurologist suggested medical management of the subacute infarct with Plavix aspirin as well as a statin. Patient was discharged home at about 3 this afternoon. However when she got home that she had a return of the same symptoms that initially brought her to the ER yesterday. On presentation to the ER however she is free of any focal neuro deficits. No weakness, no slurred speech and she has a normal gait. I discussed this case with on-call neurologist Dr. Kirkland with [facility]. He would recommend consultation with vascular for further evaluation of the ICA stenosis. I subsequently then spoke with Dr. Potts a vascular surgeon at [facility] and he would recommend emergent transfer for evaluation of the stenosis with likely right carotid enterectomy to be performed on Thursday, October 26. Patient has been accepted at [facility] appropriate [facility] [place] paperwork has been completed. No new labs were ordered today as they were recently completed while she was an inpatient. I have notified patient the plan to transfer and she is in agreement with the plan. 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
[2020-10-24] MEDS ORDERED: CLOPIDOGREL 75 MG TABLET PO STA (20:58)
[2020-10-24 22:52] VITALS: BP 148/88
[2020-10-24 23:47] LABS: B. PARAPERTUSSIS- RESP PCR PAN NOT DETECTED; B. PERTUSSIS- RESP PCR PANEL NOT DETECTED; C. PNEUMONIAE- RESP PCR PANEL NOT DETECTED; CORONAVIRUS 229E-RESP PCR NOT DETECTED; CORONAVIRUS HKU1-RESP PCR NOT DETECTED; CORONAVIRUS NL63-RESP PCR NOT DETECTED; CORONAVIRUS OC43-RESP PCR NOT DETECTED; HUMAN METAPNEUMOVIRUS NOT DETECTED; INFLUENZA A- RESP PCR PANEL NOT DETECTED; INFLUENZA B - RESP PCR PANEL NOT DETECTED; M. PNEUMONIAE- RESP PCR PANEL NOT DETECTED; PARAINFLUENZA VIRUS 1 NOT DETECTED; PARAINFLUENZA VIRUS 2 NOT DETECTED; PARAINFLUENZA VIRUS 3 NOT DETECTED; PARAINFLUENZA VIRUS 4 NOT DETECTED; RHINOVIRUS/ENTEROVIRUS NOT DETECTED; RSV- RESP PCR PANEL NOT DETECTED; SARS-CoV-2 -RESP PCR PANEL NOT DETECTED
== END 2020-10-24 23:10 | disposition short-term general hospital (02) ==
LOC: ED 18:38
DX: I63.9 Cerebral infarction, unspecified (principal); I65.21 Occlusion and stenosis of right carotid artery; I10 Essential (primary) hypertension; Z20.822 Contact with and (suspected) exposure to COVID-19
CPT/HCPCS: 0202U; 99285

== ENCOUNTER 2020-10-24 23:05 | Outpatient (CLI) | payer MEDICARE, OTHER | END 2020-10-24 23:06 | disposition short-term general hospital (02) | LOC: EMS 23:05 | PROVIDERS: ATTEND Registered Nurse | DX: I63.9 Cerebral infarction, unspecified (principal); I65.21 Occlusion and stenosis of right carotid artery | CPT/HCPCS: A0425; A0428 ==

== ENCOUNTER 2020-11-20 14:33 | Outpatient (CLI) | payer MEDICARE, OTHER ==
--- NOTE | 2020-11-20 10:05 | XRAY Report ---
PROCEDURE: Wrist 3 View RT INDICATIONS: COLLES FX OF R RADIUS TECHNIQUE: 3 views of the wrist were acquired. COMPARISON: 10/12/2020 FINDINGS: Bones: Stable postsurgical changes of open reduction and internal fixation of the right fourth metaca rpal. No evidence for hardware application. Redemonstration of comminuted, impacted intra-articular f racture of the distal right radius. There is some bridging callus formation. Redemonstration of minim ally displaced ulnar styloid fracture. This has not changed significantly in appearance. Diffuse oste openia. Moderate degenerative changes of the right first carpometacarpal joint. Overall alignment of the right wrist appear stable. Suspicious bony lesions. Soft tissues: No suspicious soft tissue calcifications. IMPRESSION: 1. Stable alignment of comminuted, impacted distal right radial fracture with intra-articular extensi on. There is some early bridging callus formation suggesting progress towards fracture healing. 2. Stable appearance and alignment of minimally displaced fracture at the base of the distal ulnar st yloid. 3. Diffuse osteopenia. 4. Degenerative changes of the first carpometacarpal joint. 5. Stable postoperative changes of right fourth metacarpal ORIF without evidence for hardware complic ation. Reviewed by: Brijesh Beyer MD on 11/20/2020 10:04 AM PDT Approved by: Brijesh Beyer MD on 11/20/2020 10:04 AM PDT Station ID: [id number]
--- NOTE | 2020-11-20 10:13 | XRAY Report ---
PROCEDURE: Abdomen 1 View X-Ray INDICATIONS: CHRONIC DIARRHEA TECHNIQUE: 1 view of the abdomen were acquired. COMPARISON: None FINDINGS: Surgical changes and devices: None. Bowel: No pneumoperitoneum. The bowel gas pattern is nonobstructive. Soft tissues: No masses; visualized solid organ contours appear normal in size. Coarse soft tissue c alcification noted in the pelvis slightly to the left of midline. This likely represents a calcified uterine fibroid. Bones: No suspicious bony abnormalities. Levoscoliosis of the lumbar spine. Multilevel spondylosis. Degenerative changes of the bilateral sacroiliac and bilateral hip joints. IMPRESSION: 1. Abdomen without acute radiographic abnormalities. 2. Coarse soft tissue calcification in the pelvis likely representing a calcified uterine fibroid. 3. Levoscoliosis of the lumbar spine. Reviewed by: Brijesh Beyer MD on 11/20/2020 10:11 AM PDT Approved by: Brijesh Beyer MD on 11/20/2020 10:11 AM PDT Station ID: [id number]
== END 2020-11-20 14:34 ==
LOC: DI.N 14:33
PROVIDERS: ATTEND Physician Assistant
DX: S52.531D Colles' fracture of right radius, subsequent encounter for closed fracture with routine healing (principal); S52.611D Displaced fracture of right ulna styloid process, subsequent encounter for closed fracture with routine healing; M85.831 Other specified disorders of bone density and structure, right forearm; M18.11 Unilateral primary osteoarthritis of first carpometacarpal joint, right hand; R19.7 Diarrhea, unspecified; M41.9 Scoliosis, unspecified

== ENCOUNTER 2020-12-11 09:00 | Outpatient (CLI) | payer MEDICARE, OTHER ==
--- NOTE | 2020-12-11 10:33 | XRAY Report ---
PROCEDURE: Wrist 3 View RT INDICATIONS: COLLES FRACTURE OF RIGHT RADIUS TECHNIQUE: 3 views of the wrist were acquired. COMPARISON: November 12, 2020 FINDINGS: BONES: Redemonstrated fracture deformities of the distal radius and ulna styloid without significant interval change. Fourth metacarpal internal fixation hardware is seen without evidence of compromise. The carpal bone alignment is maintained. SOFT TISSUES: Edema about the wrist. IMPRESSION: 1.No significant interval change. Reviewed by: Bruce Tsang MD on 12/11/2020 10:32 AM PDT Approved by: Bruce Tsang MD on 12/11/2020 10:32 AM PDT Station ID: [id number]
== END 2020-12-11 23:59 ==
LOC: DI.N 09:00
PROVIDERS: ATTEND Physician Assistant
DX: S52.511D Displaced fracture of right radial styloid process, subsequent encounter for closed fracture with routine healing (principal); S52.611D Displaced fracture of right ulna styloid process, subsequent encounter for closed fracture with routine healing

== ENCOUNTER 2020-12-14 07:37 | Outpatient (CLI) | payer MEDICARE, OTHER ==
[2020-12-14 11:46] LABS: BASOPHILS # (AUTO) 0.1 10^3/uL (0.0-0.1); EOSINOPHILS # (AUTO) 0.2 10^3/uL (0.0-0.7); EOSINOPHILS % (AUTO) 3.3 %; HCT - HEMATOCRIT 42.6 % (37.0-47.0); HGB - HEMOGLOBIN 13.7 g/dL (12.0-16.0); LYMPHOCYTES # (AUTO) 1.2 10^3/uL (1.5-3.5); LYMPHOCYTES % (AUTO) 20.5 %; MEAN CORPUSCULAR HEMOGLOBIN 31.8 pg (27.0-31.0); MEAN CORPUSCULAR HGB CONC 32.2 g/dL (32.0-36.0); MEAN CORPUSCULAR VOLUME 98.8 fL (81.0-99.0); MEAN PLATELET VOLUME 10.8 fL (7.9-10.8); MONOCYTES # (AUTO) 0.7 10^3/uL (0.0-1.0); MONOCYTES % (AUTO) 11.6 %; NEUTROPHILS # (AUTO) 3.8 10^3/uL (1.5-6.6); NEUTROPHILS % (AUTO) 63.3 %; PLT - PLATELET COUNT 200 10^3/uL (130-450); RED BLOOD COUNT 4.31 10^6/uL (4.20-5.40); RED CELL DISTRIBUTION WIDTH 12.1 % (12.0-15.0); WHITE BLOOD COUNT 6.1 x10^3/uL (4.8-10.8)
[2020-12-14 12:06] LABS: ALBUMIN 4.2 g/dL (3.2-5.5); ALBUMIN/GLOBULIN RATIO 1.4 (1.0-2.2); BILIRUBIN,TOTAL 0.6 mg/dL (0.2-1.0); CALCIUM 9.6 mg/dL (8.5-10.3); CREATININE 0.7 mg/dL (0.4-1.0); POTASSIUM 4.4 mmol/L (3.5-5.0); TOTAL PROTEIN 7.2 g/dL (6.7-8.2)
[2020-12-14 12:23] LABS: THYROID STIMULATING HORMONE 1.19 uIU/mL (0.34-5.60)
== END 2020-12-14 23:59 | disposition home or self-care (01) ==
LOC: LAB.WCP 07:37
PROVIDERS: ATTEND Family Medicine
DX: K52.9 Noninfective gastroenteritis and colitis, unspecified (principal)
CPT/HCPCS: 36415; 80053; 84443; 85025

== ENCOUNTER 2020-12-17 18:59 | Outpatient (CLI) | payer MEDICARE, OTHER | END 2020-12-17 19:00 | disposition home or self-care (01) | LOC: COV 18:59 | PROVIDERS: ATTEND Internal Medicine Cardiovascular Disease | DX: Z01.812 Encounter for preprocedural laboratory examination (principal); I47.2 Ventricular tachycardia; I47.1 Supraventricular tachycardia; Z20.822 Contact with and (suspected) exposure to COVID-19 ==

== ENCOUNTER 2021-01-28 08:00 | Outpatient (CLI) | payer MEDICARE, OTHER ==
[2021-01-28 12:17] LABS: BASOPHILS # (AUTO) 0.1 10^3/uL (0.0-0.1); BASOPHILS % (AUTO) 1.1 %; EOSINOPHILS # (AUTO) 0.3 10^3/uL (0.0-0.7); EOSINOPHILS % (AUTO) 4.9 %; HCT - HEMATOCRIT 43.2 % (37.0-47.0); HGB - HEMOGLOBIN 14.2 g/dL (12.0-16.0); LYMPHOCYTES # (AUTO) 1.1 10^3/uL (1.5-3.5); LYMPHOCYTES % (AUTO) 17.2 %; MEAN CORPUSCULAR HEMOGLOBIN 32.3 pg (27.0-31.0); MEAN CORPUSCULAR HGB CONC 32.9 g/dL (32.0-36.0); MEAN CORPUSCULAR VOLUME 98.4 fL (81.0-99.0); MONOCYTES # (AUTO) 0.9 10^3/uL (0.0-1.0); MONOCYTES % (AUTO) 14.1 %; NEUTROPHILS # (AUTO) 3.8 10^3/uL (1.5-6.6); NEUTROPHILS % (AUTO) 62.2 %; PLT - PLATELET COUNT 183 10^3/uL (130-450); RED BLOOD COUNT 4.39 10^6/uL (4.20-5.40); RED CELL DISTRIBUTION WIDTH 12.2 % (12.0-15.0); WHITE BLOOD COUNT 6.1 x10^3/uL (4.8-10.8)
[2021-01-28 12:37] LABS: CALCIUM 9.2 mg/dL (8.5-10.3); CREATININE 0.7 mg/dL (0.4-1.0); POTASSIUM 4.7 mmol/L (3.5-5.0)
== END 2021-01-28 23:59 | disposition home or self-care (01) ==
LOC: LAB.WCP 08:00
PROVIDERS: ATTEND Internal Medicine Cardiovascular Disease
DX: R94.39 Abnormal result of other cardiovascular function study (principal)
CPT/HCPCS: 36415; 80048; 85025

== ENCOUNTER 2021-02-07 17:06 | Emergency (ER) | payer MEDICARE, OTHER ==
[2021-02-07] MEDS ORDERED: LIDOCAINE OINTMENT 5% 35.44 GM TUBE TOP STA (18:21)
--- NOTE | 2021-02-07 18:42 | CT Report ---
PROCEDURE: HEAD WO INDICATIONS: fall, head/neck injury TECHNIQUE: Noncontrast 4.5 mm thick angled axial sections acquired from the foramen magnum to the vertex. For r adiation dose reduction, the following was used: automated exposure control, adjustment of mA and/or kV according to patient size. COMPARISON: Head CT 10/23/2020. FINDINGS: Image quality: Excellent. CSF spaces: Basal cisterns are patent. No extra-axial fluid collections. Ventricles are normal in size and shape. Brain: No midline shift. No intracranial masses or hemorrhage. Subtle hypodensity adjacent to the a nterior horn of the right lateral ventricle is unchanged. No area of hypodensity in a large vascular distribution to suggest acute infarction. Periventricular hypodensity consistent with chronic microva scular ischemic disease. Age-related , loss. Skull and face: Calvarium and visualized facial bones are intact, without suspicious lesions. Sinuses: Visualized sinuses and mastoids are clear. IMPRESSION: No acute intracranial abnormality. Small hypodense focus adjacent to the right lateral ventricle is unchanged. This consistent with prio r infarction. Chronic microvascular ischemic disease. Reviewed by: Migel Willoughby MD on 02/07/2021 6:41 PM PST Approved by: Migel Willoughby MD on 02/07/2021 6:41 PM PST Station ID: [id number]
--- NOTE | 2021-02-07 18:46 | CT Report ---
PROCEDURE: CERVICAL SPINE WO INDICATIONS: fall, head/neck injury TECHNIQUE: Noncontrast 3 mm thick sections acquired from the skull base to the T4 level. Sagittal and coronal r eformats were then constructed. For radiation dose reduction, the following was used: automated exp osure control, adjustment of mA and/or kV according to patient size. COMPARISON: Neck angiogram 10/23/2020. FINDINGS: Image quality: Excellent. Bones: No fractures or dislocations. Visualized superior ribs are intact. T4 compression fracture is unchanged. Soft tissues: Prevertebral soft tissues are normal in thickness. No paravertebral hematomas. No ap ical pneumothoraces. Thyroid nodule measuring approximately 1.4 cm. IMPRESSION: No acute osseous abnormality. T4 compression fractures unchanged. Right thyroid nodule measuring approximately 1.4 cm. Consider further evaluation with thyroid ultrasound. Reviewed by: Migel Willoughby MD on 02/07/2021 6:45 PM PST Approved by: Migel Willoughby MD on 02/07/2021 6:45 PM PST Station ID: [id number]
[2021-02-07] MEDS ORDERED: TETANUS/DIPHTHERIA/PERTUSSIS 0.5 ML SYRINGE IM ONE (19:02)
--- NOTE | 2021-02-07 19:02 | ED Physician Documentation ---
PD HPI HEAD INJURY - Stated complaint Stated Complaint: GLF/HEAD INJ, BLEEDING - Chief complaint Chief Complaint: Neuro - History obtained from History obtained from: Patient - History of Present Illness Mechanism of head injury: Fell Where head injury occurred: Home Pain level max: 3 Location of injury: Top. No: Right, Left, Front, Back Quality of pain: Pain, Aching, Dull Associated symptoms: No: LOC, AMS, Nausea / vomiting, Neck pain, Paresthesias Contributing factors: No: Anticoagulated - Additional information Additional information: Patient is an 80-year-old female who tripped over a lamp cord and struck her head on a table today. She sustained a laceration to the top of her head. No loss of consciousness. She had been on Plavix until about a week ago. She has a laceration to the top of her head. Denies neck or back pain. No numbness or tingling. No loss of consciousness. No vomiting. No altered mental status. Unknown last tetanus. Nothing makes it better or worse Review of Systems Constitutional: denies: Fever, Chills GI: denies: Vomiting, Diarrhea Skin: denies: Rash Neurologic: denies: Headache PD PAST MEDICAL HISTORY - Past Medical History Cardiovascular: Hypertension, High cholesterol, Other Respiratory: None Neuro: TIA Endocrine/Autoimmune: None GI: None SOFTWARE INTERN: None : None HEENT: None Psych: None Musculoskeletal: None Derm: None Other Past Medical History: "irregular heart rhythm" - Past Surgical History Past Surgical History: Yes /SOFTWARE INTERN: Oophrectomy HEENT: Tonsil/Adenoidectomy - Present Medications Home Medications: Ambulatory Orders Medication Instructions Recorded Confirmed Aspirin Chewable [St Slim 81 mg PO DAILY #30 tablet 10/24/20 10/24/20 Aspirin] Clopidogrel [Plavix] 75 mg PO DAILY #90 tablet 10/24/20 10/24/20 atenoloL [Tenormin] 25 mg PO DAILY #30 tablet 10/24/20 10/24/20 Atorvastatin [Lipitor] 80 mg PO QPM 11/01/20 10/24/20 - Allergies Allergies/Adverse Reactions: Allergies Allergy/AdvReac Type Severity Reaction Status Date / Time No Known Drug Allergies Allergy Verified 10/24/20 18:46 - Social History Does the pt smoke?: No Smoking Status: Never smoker Does the pt drink ETOH?: No Does the pt have substance abuse?: No - Immunizations Immunizations are current?: Yes PD ED PE NORMAL - Vitals Vital signs reviewed: Yes - General General: Alert and oriented X 3, No acute distress - HEENT HEENT: PERRL, Moist mucous membranes, Other (2cm scalp laceration, top of scalp.) - Neck Neck: Supple, no meningeal sign, No bony TTP - Cardiac Cardiac: RRR - Respiratory Respiratory: No respiratory distress, Clear bilaterally - Abdomen Abdomen: Soft, Non tender, Non distended - Back Back: No spinal TTP - Derm Derm: Warm and dry - Neuro Neuro: Alert and oriented X 3 - Psych Psych: Normal mood, Normal affect Results - Vitals Vitals: Vital Signs - 24 hr 02/07/21 02/07/21 02/07/21 17:09 17:44 18:20 Temperature 36.5 C Heart Rate 46 L 84 88 Respiratory 16 17 14 Rate Blood Pressure 201/67 H 170/74 H 173/97 H O2 Saturation 97 99 98 02/07/21 19:31 Temperature Heart Rate 46 L Respiratory 16 Rate Blood Pressure 178/76 H O2 Saturation 100 Oxygen O2 Source Room air - EKG (time done) 1746 Rate: Rate (enter#) (82) Rhythm: NSR, Other (bigeminy) [place]: Normal Intervals: Normal CT QRS: Normal Ischemia: Normal ST segments - Rads (name of study) CT head Radiology: Final report received, EMP read contemporaneously, See rad report CT cervical spine Radiology: Final report received, EMP read contemporaneously, See rad report Procedures - Laceration (location) Scalp Length in cm: 2 Wound type: Linear, Into subcut fat, Clean Neurovascular status: Sensory intact, Motor intact, Vascular intact Anesthesia: Other (Topical lidocaine) Wound preparation: Irrigated copiously NS Skin layer closure: Dhara (3) Other: Patient tolerated well, No complications, Neurovascular intact, Dressing applied, Tetanus booster given PD MEDICAL DECISION MAKING - ED course Complexity details: reviewed results, re-evaluated patient, considered differential, d/w patient ED course: 80-year-old female status post ground-level fall. Laceration repaired with dhara. Tolerated well. No acute findings on head CT. Does have a thyroid nodule on CT of the cervical spine. She will follow up with her doctor for further evaluation of this. Warnings of infection and instructions on wound care given at bedside. Also counseled on how to minimize scarring. Patient counseled regarding signs and symptoms for which I believe and urgent re-evaluation would be necessary. Patient with good understanding of and agreement to plan and is comfortable going home at this time This document was made in part using voice recognition software. While efforts are made to proofread this document, sound alike and grammatical errors may occur. IMPRESSION: No acute intracranial abnormality. Small hypodense focus adjacent to the right lateral ventricle is unchanged. This consistent with prior infarction. Chronic microvascular ischemic disease. IMPRESSION: No acute osseous abnormality. T4 compression fractures unchanged. Right thyroid nodule measuring approximately 1.4 cm. Consider further evaluation with thyroid ultrasound. Departure - Departure Disposition: Home, Self Care Clinical Impression: Thyroid nodule Scalp laceration Qualifiers: Encounter type: initial encounter Qualified Code(s): S01.01XA - Laceration without foreign body of scalp, initial encounter Closed head injury Qualifiers: Encounter type: initial encounter Qualified Code(s): S09.90XA - Unspecified injury of head, initial encounter Condition: Good Instructions: ED Head Injury Closed, ED Laceration Scalp Stitch Or Stap Follow-Up: Jose Manuel Madden MD [Primary Care Provider] - Within 1 week Comments: Please follow-up with your doctor in 10 to 14 days for staple removal. Return sooner if you notice redness, swelling or drainage from the wound. Return if you worsen. Discharge Date/Time: 02/07/21 19:35
[2021-02-07 19:32] VITALS: BP 178/76
== END 2021-02-07 19:35 | disposition home or self-care (01) ==
LOC: ED 17:06
DX: S01.01XA Laceration without foreign body of scalp, initial encounter (principal); S09.90XA Unspecified injury of head, initial encounter; W01.190A Fall on same level from slipping, tripping and stumbling with subsequent striking against furniture, initial encounter; Y92.009 Unspecified place in unspecified non-institutional (private) residence as the place of occurrence of the external cause; Z23 Encounter for immunization; E04.1 Nontoxic single thyroid nodule; R00.8 Other abnormalities of heart beat; I10 Essential (primary) hypertension; Z79.82 Long term (current) use of aspirin
CPT/HCPCS: 12001; 70450; 72125; 90471; 90715; 93005; 99282; 99284; A9270

== ENCOUNTER 2021-03-07 19:59 | Outpatient (CLI) | payer MEDICARE, OTHER ==
--- NOTE | 2021-03-11 16:06 | Ultrasound Report ---
PROCEDURE: Head or Neck Soft Tissue INDICATIONS: RT THYROID NODULE TECHNIQUE: Real-time scanning was performed of the thyroid gland, with image documentation. COMPARISON: None FINDINGS: Right: Thyroid lobe measures 5.0 x 1.4 x 1.9 cm, and is homogeneous in echotexture. Left: Thyroid lobe measures 4.3 x 1.2 x 1.4 cm, and is homogenous in echotexture. Isthmus: 3 mm thick. Nodule number: One Location: Right inferior Size: 1.9 x 0.9 x 1.8 cm. Composition: Solid Echogenicity: Hypoechoic Shape: wider than tall. Margins: Smooth Echogenic foci: None Total points: 4 ACR TI-RADS category: 4 Nodule number: Two Location: Right mid lobe Size: 0.7 x 0.9 x 0.9 cm. Composition: Solid Echogenicity: Hypoechoic Shape: wider than tall. Margins: Smooth Echogenic foci: None Total points: 4 ACR TI-RADS category: 4 Nodule number: Three Location: Right mid lobe Size: 0.8 x 0.5 x 0.8 cm. Composition: Spongiform Echogenicity: Hypoechoic Shape: wider than tall. Margins: Smooth Echogenic foci: Punctate Total points: 5 ACR TI-RADS category: 4 Nodule number: Four Location: Left mid Size: 1.4 x 0.7 x 0.9 cm. Composition: Spongiform Echogenicity: Hypoechoic Shape: wider than tall. Margins: Smooth Echogenic foci: Punctate Total points: 5 ACR TI-RADS category: 4 In addition, there are several small scattered areas of heterogeneous echogenicity measuring less ace n 5 mm. There is an approximate 5 mm hypoechoic focus at the inferior most aspect of the left thyroid/possibl y parathyroid. IMPRESSION: 1. Lesions 1 and lesions 4 are considered category 4. Lesion 1 secondary to size recommend FNA. Lesio n 4 secondary to size recommends follow-up at 1, 2, 3 and 5 years. 2. Lesions 2 and 3 are considered category 4. However, secondary to size, no additional follow-up is recommended. 3. Subcentimeter focus of heterogeneous echogenicity along the inferior left thyroid/parathyroid starr on. It is not well visualized. Parathyroid adenoma cannot be definitively excluded. Recommend correla tion patient's symptoms and as clinically indicated, error thyroid nuclear medicine scan or CT with p arathyroid protocol is recommended. ACR TI-RADS definitions and recommendations: TI-RADS 1 (benign): 0 points. FNA not needed. TI-RADS 2 (not suspicious): 2 points. FNA not needed. TI-RADS 3 (mildly suspicious): 3 points. "FNA if 2.5 cm or larger, follow up if 1.5 cm or larger (at 1, 3, and 5 years). TI-RADS 4 (moderately suspicious): 4-6 points. "FNA if 1.5 cm or larger, follow up if 1 cm or larger (at 1, 2, 3, and 5 years). TI-RADS 5 (highly suspicious): 7 points or more. "FNA if 1 cm or larger, follow up if 0.5 cm or larger (every year for 5 years). Reviewed by: Lorraine Mayfield MD on 03/11/2021 4:05 PM PST Approved by: Lorraine Mayfield MD on 03/11/2021 4:05 PM PST Station ID: [id number]
== END 2021-03-07 20:00 | disposition home or self-care (01) ==
LOC: DI 19:59
PROVIDERS: ATTEND Family Medicine
DX: E04.2 Nontoxic multinodular goiter (principal)

== ENCOUNTER 2021-12-18 08:11 | Outpatient (CLI) | payer MEDICARE, OTHER ==
[2021-12-18 11:53] LABS: BASOPHILS # (AUTO) 0.1 10^3/uL (0.0-0.1); BASOPHILS % (AUTO) 1.2 %; EOSINOPHILS # (AUTO) 0.2 10^3/uL (0.0-0.7); EOSINOPHILS % (AUTO) 4.1 %; HCT - HEMATOCRIT 44.6 % (37.0-47.0); HGB - HEMOGLOBIN 14.3 g/dL (12.0-16.0); LYMPHOCYTES # (AUTO) 1.3 10^3/uL (1.5-3.5); LYMPHOCYTES % (AUTO) 22.4 %; MEAN CORPUSCULAR HEMOGLOBIN 31.6 pg (27.0-31.0); MEAN CORPUSCULAR HGB CONC 32.1 g/dL (32.0-36.0); MEAN CORPUSCULAR VOLUME 98.5 fL (81.0-99.0); MEAN PLATELET VOLUME 10.9 fL (7.9-10.8); MONOCYTES # (AUTO) 0.7 10^3/uL (0.0-1.0); MONOCYTES % (AUTO) 12.8 %; NEUTROPHILS # (AUTO) 3.3 10^3/uL (1.5-6.6); NEUTROPHILS % (AUTO) 59.1 %; PLT - PLATELET COUNT 217 10^3/uL (130-450); RED BLOOD COUNT 4.53 10^6/uL (4.20-5.40); RED CELL DISTRIBUTION WIDTH 12.4 % (12.0-15.0); WHITE BLOOD COUNT 5.6 x10^3/uL (4.8-10.8)
[2021-12-18 12:30] LABS: ALBUMIN 4.2 g/dL (3.2-5.5); ALBUMIN/GLOBULIN RATIO 1.2 (1.0-2.2); ALKALINE PHOSPHATASE 59 IU/L (42-121); ALT ALANINE AMINOTRANSFERASE 22 IU/L (10-60); AST ASPARTATE AMINOTRANSFERASE 23 IU/L (10-42); BILIRUBIN,TOTAL 0.8 mg/dL (0.2-1.0); BUN - BLOOD UREA NITROGEN 21 mg/dL (6-20); CALCIUM 9.6 mg/dL (8.5-10.3); CARBON DIOXIDE - CO2 30 mmol/L (21-32); CHLORIDE 100 mmol/L (101-111); CHOL/HDL RATIO 2.3 (<4.4); CHOLESTEROL 151 mg/dL; CREATININE 0.7 mg/dL (0.4-1.0); FREE T3 3.03 pg/mL (2.5-3.9); GFR - MDRD 80 (>89); GLUCOSE 98 mg/dL (70-100); HDL CHOLESTEROL 67 mg/dL; LDL CHOLESTEROL,CALCULATED 72 mg/dL; LDL/HDL RATIO 1.1 (<4.4); POTASSIUM 4.5 mmol/L (3.5-5.0); SODIUM 138 mmol/L (135-145); THYROID STIMULATING HORMONE 0.87 uIU/mL (0.34-5.60); TOTAL PROTEIN 7.7 g/dL (6.7-8.2); TRIGLYCERIDES 62 mg/dL; VLDL CHOLESTEROL 12 mg/dL
[2021-12-18 12:31] LABS: FREE T4 (FREE THYROXINE) 0.79 ng/dL (0.58-1.64)
== END 2021-12-18 08:12 | disposition home or self-care (01) ==
LOC: LAB.N 08:11
PROVIDERS: ATTEND Family Medicine
DX: I42.9 Cardiomyopathy, unspecified (principal); R03.0 Elevated blood-pressure reading, without diagnosis of hypertension; R26.81 Unsteadiness on feet; E04.1 Nontoxic single thyroid nodule; I63.9 Cerebral infarction, unspecified
CPT/HCPCS: 36415; 80053; 80061; 83721; 84439; 84443; 84481; 85025

== ENCOUNTER 2022-12-10 07:08 | Outpatient (CLI) | payer MEDICARE, OTHER ==
[2022-12-10 12:10] LABS: BASOPHILS % (AUTO) 0.6 %; EOSINOPHILS # (AUTO) 0.2 10^3/uL (0.0-0.7); EOSINOPHILS % (AUTO) 2.6 %; HCT - HEMATOCRIT 45.2 % (37.0-47.0); HGB - HEMOGLOBIN 14.6 g/dL (12.0-16.0); LYMPHOCYTES # (AUTO) 1.5 10^3/uL (1.5-3.5); LYMPHOCYTES % (AUTO) 21.9 %; MEAN CORPUSCULAR HEMOGLOBIN 31.9 pg (27.0-31.0); MEAN CORPUSCULAR HGB CONC 32.3 g/dL (32.0-36.0); MEAN CORPUSCULAR VOLUME 98.7 fL (81.0-99.0); MEAN PLATELET VOLUME 10.6 fL (7.9-10.8); MONOCYTES # (AUTO) 0.8 10^3/uL (0.0-1.0); MONOCYTES % (AUTO) 11.7 %; NEUTROPHILS # (AUTO) 4.3 10^3/uL (1.5-6.6); NEUTROPHILS % (AUTO) 62.6 %; PLT - PLATELET COUNT 259 10^3/uL (130-450); RED BLOOD COUNT 4.58 10^6/uL (4.20-5.40); WHITE BLOOD COUNT 6.8 x10^3/uL (4.8-10.8)
[2022-12-10 12:29] LABS: ALBUMIN 4.2 g/dL (3.2-5.5); ALBUMIN/GLOBULIN RATIO 1.5 (1.0-2.2); ALKALINE PHOSPHATASE 61 IU/L (42-121); ALT ALANINE AMINOTRANSFERASE 14 IU/L (10-60); AST ASPARTATE AMINOTRANSFERASE 18 IU/L (10-42); BILIRUBIN,TOTAL 0.8 mg/dL (0.2-1.0); BUN - BLOOD UREA NITROGEN 13 mg/dL (6-20); CALCIUM 9.6 mg/dL (8.5-10.3); CARBON DIOXIDE - CO2 33 mmol/L (21-32); CHLORIDE 104 mmol/L (101-111); CHOL/HDL RATIO 2.7 (<4.4); CHOLESTEROL 133 mg/dL; CREATININE 0.6 mg/dL (0.6-1.3); GFR - MDRD 95 (>89); GLUCOSE 101 mg/dL (74-104); HDL CHOLESTEROL 49 mg/dL; LDL CHOLESTEROL,CALCULATED 54 mg/dL; LDL/HDL RATIO 1.1 (<4.4); POTASSIUM 4.4 mmol/L (3.5-4.5); SODIUM 140 mmol/L (135-145); TRIGLYCERIDES 148 mg/dL (48-352); VLDL CHOLESTEROL 30 mg/dL
[2022-12-10 12:39] LABS: THYROID STIMULATING HORMONE 0.89 uIU/mL (0.34-5.60)
== END 2022-12-10 07:09 | disposition home or self-care (01) ==
LOC: LAB.N 07:08
PROVIDERS: ATTEND Family Medicine
DX: E78.5 Hyperlipidemia, unspecified (principal); M17.9 Osteoarthritis of knee, unspecified; R03.0 Elevated blood-pressure reading, without diagnosis of hypertension; I63.9 Cerebral infarction, unspecified
CPT/HCPCS: 36415; 80053; 80061; 83721; 84443; 85025

== ENCOUNTER 2023-03-16 08:39 | Emergency (ER) | payer MEDICARE, OTHER ==
--- NOTE | 2023-03-16 08:58 | ED Physician Documentation ---
PD HPI SKIN - Stated complaint Stated Complaint: LT LEG WOUND - Chief complaint Chief Complaint: Wound - History obtained from History obtained from: Patient - History of Present Illness Timing - onset: How many days ago (4-5) Timing - duration: Days (4-5) Timing - details: Gradual onset, Still present Location: LLE (has had chronic small ulceration anterior left lower leg since biopsy by [employer] couple years ago. Normally no problems with the area. Has had several days of redness and swelling around that now. No drainage. Tender at the area and lateral with some lumpy firm tenderness lateral lower leg.) Quality / character: Discolored (red), Swelling. No: Vesicular, Draining Associated symptoms: No: Fever Contributing factors: No: Recent illness Similar symptoms before: Has not had sx before Recently seen: Clinic (seen 2 days ago in Walk In and Rx Keflex for concern of cellulitis. Pt states has not noted any improvement and maybe slightly expanded redness. 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 : None HEENT: None Psych: None Musculoskeletal: None Derm: None - Past Surgical History Past Surgical History: Yes Ortho: Carpal Tunnel surgery /[employer]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: Oophrectomy HEENT: Tonsil/Adenoidectomy - Present Medications Home Medications: Ambulatory Orders Medication Instructions Recorded Confirmed Aspirin Chewable [St Slim 81 mg PO DAILY #30 tablet 10/24/20 03/16/23 Aspirin] Atorvastatin [Lipitor] 40 mg PO QPM 11/01/20 03/16/23 Doxycycline Hyclate 100 mg PO BID 7 Days #14 cap 03/16/23 cephALEXin [Keflex] 500 mg PO TID 03/16/23 03/16/23 - Allergies Allergies/Adverse Reactions: Allergies Allergy/AdvReac Type Severity Reaction Status Date / Time bacitracin Allergy Unknown Verified 03/16/23 08:49 [From Neosporin ([id number])] neomycin Allergy Unknown Verified 03/16/23 08:49 [From Neosporin ([id number])] polymyxin B Allergy Unknown Verified 03/16/23 08:49 [From Neosporin ([id number])] - Social History Does the pt smoke?: No Smoking Status: Former smoker Does the pt drink ETOH?: No Does the pt have substance abuse?: No - Immunizations Immunizations are current?: Yes - POLST Patient has POLST: No PD ED PE NORMAL - Vitals Vital signs reviewed: Yes - General General: Alert and oriented X 3, No acute distress, Well developed/nourished - Derm Derm: Normal color, Warm and dry, Other (left lower leg anteriorly with chronic appearing partial thickness rounded 1/2 cm skin ulceration without drainage. has some redness surrounding. Tender. Redness with mild warmth around and laterally. tube-like subcut tender firm area lateral lower leg c/w phlebitis. No calf tenderness itself. ) Results - Vitals Vitals: Vital Signs - 24 hr 03/16/23 03/16/23 03/16/23 08:47 10:44 11:31 Temperature 36.1 C L Heart Rate 77 80 Respiratory 16 16 16 Rate Blood Pressure 171/97 H 158/88 H 148/82 H O2 Saturation 96 97 98 Oxygen O2 Source Room air - Rads (name of study) duplex US left leg Relevant Findings:: Prelim report reviewed, Other (US tech = no DVT. ) PD Medical Decision Making - ED course Complexity details: reviewed results (US without DVT. clinically superficial phlebitis and celluitis. ), considered differential (redness and swelling around chronic ulceration, without drainage. presume infection. On Keflex just 1 1/2 days without improvement. I would not stop it as yet. Discussion with pt about improved staph coverage and so add Doxy. Clinically c/w cellulitis and superficial phlebitis laterally. Can get US.), d/w patient Departure - Departure Disposition: 01 Home, Self Care Clinical Impression: Lower extremity cellulitis, Superficial phlebitis Condition: Stable Record reviewed to determine appropriate education?: Yes Instructions: ED Infec Skin Cellulitis, ED Phlebitis Superficial Follow-Up: Jose Manuel Madden MD [Primary Care Provider] - Prescriptions: Doxycycline Hyclate 100 mg PO BID 7 Days #14 cap Comments: Your ultrasound was negative for any deep vein clots. (No DVT). On exam it does feel like you have some inflammation of some of the surface varicosity veins (superficial phlebitis). These are treated differently with just warm com presses or warm moist towels to 3 times daily to the area and anti- inflammatories such as ibuprofen or naproxen. The main tenderness and swelling is likely from a skin infection called cellulitis. I would continue with the cephalexin and mupirocin you have been prescribed. I would add doxycycline as we discussed in order to have better Staph aureus coverage. I sent this to your pharmacy. Recheck if not improving well over the next several days. Continue the cephalexin and mupirocin and add doxycycline. Also add an anti-inflammatory such as ibuprofen or naproxen 2-3 [id number] tablets twice daily for the next 4 to 5 days. Warm compresses to the area of lumpy tenderness on the side of the lower leg. Forms: PCP List Discharge Date/Time: 03/16/23 11:32
[2023-03-16] MEDS ORDERED: NAPROXEN 250 MG TABLET PO STA (09:32)
[2023-03-16] MEDS ORDERED: DOXYCYCLINE 100 MG TABLET PO STA (11:15)
--- NOTE | 2023-03-16 11:16 | Ultrasound Report ---
PROCEDURE: Duplex Ext Veins Left INDICATIONS: lower leg swelling and pain for days TECHNIQUE: Real-time imaging, as well as color and pulse Doppler interrogation, were performed of the lower extr emity deep veins from the inguinal ligament to the popliteal fossa. Attempted visualization of the ca lf veins was performed. COMPARISON: None. FINDINGS: The deep veins are normally compressible, and free of intraluminal thrombus. Color and pu lse Doppler demonstrate normal phasic intraluminal flow. There is normal augmentation response to di stal compression maneuver. IMPRESSION: No deep venous thrombosis of the visualized lower extremity. Reviewed by: Min Kenyon MD on 03/16/2023 11:15 AM PST Approved by: Min Kenyon MD on 03/16/2023 11:15 AM [facility] Station ID: [id number]
[2023-03-16 11:36] VITALS: BP 148/82; O2SAT 98
== END 2023-03-16 11:32 | disposition home or self-care (01) ==
LOC: ED 08:39
DX: L03.116 Cellulitis of left lower limb (principal); I80.02 Phlebitis and thrombophlebitis of superficial vessels of left lower extremity; Z87.891 Personal history of nicotine dependence
CPT/HCPCS: 93971; 99284; A9270

== ENCOUNTER 2023-04-01 08:53 | Outpatient (CLI) | payer MEDICARE, OTHER ==
--- NOTE | 2023-04-02 09:26 | Mammography Report ---
BILATERAL DIGITAL SCREENING MAMMOGRAM 3D/2D: 04/01/2023 CLINICAL: Routine screening. Comparison is made to exams dated: 05/05/2019 mammogram, 09/09/2016 mammogram, 10/06/2014 mammogram - [facility], 02/20/2011 mammogram, 12/12/2008 mammogram, and 01/27/2007 mammogram - [facility]. Both breasts are heterogeneously dense, which may obscure small masses (category c / 51-75% glandular tissue). No significant masses, calcifications, or other findings are seen in either breast. There has been no significant interval change. IMPRESSION: NEGATIVE There is no mammographic evidence of malignancy. A 1 year screening mammogram is recommended. Based on the Tyrer Cuzick model (a risk assessment model) the patient's lifetime risk is 0.5% and her 10 year risk is 0.0%. According to the ACR, ACS, and NCCN guidelines, an annual breast MRI exam mark g with mammogram is recommended if the patient's lifetime risk is 20% or greater. This exam was interpreted at Station ID: [id number]. NOTE: For mammograms, a report in lay terms will be sent to the patient. Approximately 15% of breast malignancies will not be visualized mammographically. In the management of a palpable breast mass, a negative mammogram must not discourage biopsy of a clinically suspicious lesion. Electronically Signed By: Paul rhodes/eddi:04/02/2023 08:16:37 letter sent: No_Letter ACR BI-RADS Category 1: Negative 3341F PARENCHYMAL PATTERN: (D) - The breast(s) demonstrate(s) heterogeneously dense fibroglandular dorian madsen. BI-RADS CATEGORY: (1) - 1 Mammogram [id number] 1 year screening LATERALITY: (B)
== END 2023-04-01 08:54 | disposition home or self-care (01) ==
LOC: DI.N 08:53
DX: Z12.31 Encounter for screening mammogram for malignant neoplasm of breast (principal); R92.333 Mammographic heterogeneous density, bilateral breasts

== ENCOUNTER 2023-06-09 07:13 | Outpatient (CLI) | payer MEDICARE, OTHER ==
[2023-06-09 11:53] LABS: BASOPHILS # (AUTO) 0.1 10^3/uL (0.0-0.1); EOSINOPHILS # (AUTO) 0.3 10^3/uL (0.0-0.7); EOSINOPHILS % (AUTO) 4.3 %; HCT - HEMATOCRIT 46.1 % (37.0-47.0); HGB - HEMOGLOBIN 14.3 g/dL (12.0-16.0); LYMPHOCYTES # (AUTO) 1.2 10^3/uL (1.5-3.5); LYMPHOCYTES % (AUTO) 19.7 %; MEAN CORPUSCULAR VOLUME 99.8 fL (81.0-99.0); MEAN PLATELET VOLUME 10.8 fL (7.9-10.8); MONOCYTES # (AUTO) 0.8 10^3/uL (0.0-1.0); MONOCYTES % (AUTO) 12.8 %; NEUTROPHILS # (AUTO) 3.9 10^3/uL (1.5-6.6); NEUTROPHILS % (AUTO) 61.7 %; PLT - PLATELET COUNT 255 10^3/uL (130-450); RED BLOOD COUNT 4.62 10^6/uL (4.20-5.40); RED CELL DISTRIBUTION WIDTH 12.3 % (12.0-15.0); WHITE BLOOD COUNT 6.3 x10^3/uL (4.8-10.8)
[2023-06-09 12:08] LABS: ESTIMATED AVERAGE GLUCOSE 117 mg/dL (70-100); HEMOGLOBIN A1c% 5.7 % (4.27-6.07)
[2023-06-09 12:11] LABS: ALBUMIN 4.2 g/dL (3.2-5.5); ALBUMIN/GLOBULIN RATIO 1.2 (1.0-2.2); ALKALINE PHOSPHATASE 85 IU/L (42-121); ALT ALANINE AMINOTRANSFERASE 14 IU/L (10-60); AST ASPARTATE AMINOTRANSFERASE 20 IU/L (10-42); BILIRUBIN,TOTAL 0.8 mg/dL (0.2-1.0); BUN - BLOOD UREA NITROGEN 15 mg/dL (6-20); CARBON DIOXIDE - CO2 32 mmol/L (21-32); CHLORIDE 102 mmol/L (101-111); CHOL/HDL RATIO 2.5 (<4.4); CHOLESTEROL 150 mg/dL; CREATININE 0.7 mg/dL (0.6-1.3); GFR - MDRD 80 (>89); GLUCOSE 96 mg/dL (74-104); HDL CHOLESTEROL 60 mg/dL; LDL CHOLESTEROL,CALCULATED 59 mg/dL; POTASSIUM 4.2 mmol/L (3.5-4.5); SODIUM 139 mmol/L (135-145); TOTAL PROTEIN 7.7 g/dL (6.4-8.9); TRIGLYCERIDES 155 mg/dL (48-352); VLDL CHOLESTEROL 31 mg/dL
[2023-06-09 12:26] LABS: THYROID STIMULATING HORMONE 1.31 uIU/mL (0.34-5.60)
== END 2023-06-09 07:14 | disposition home or self-care (01) ==
LOC: LAB.N 07:13
PROVIDERS: ATTEND Family Medicine
DX: M79.673 Pain in unspecified foot (principal); I42.9 Cardiomyopathy, unspecified; I65.21 Occlusion and stenosis of right carotid artery; I63.9 Cerebral infarction, unspecified; I10 Essential (primary) hypertension; E78.5 Hyperlipidemia, unspecified; R73.03 Prediabetes
CPT/HCPCS: 36415; 80053; 80061; 83036; 83721; 84443; 85025

== ENCOUNTER 2023-10-16 07:14 | Outpatient (CLI) | payer MEDICARE, OTHER | END 2023-10-16 23:59 | disposition short-term general hospital (02) | LOC: EMS 07:14 | DX: S79.912A Unspecified injury of left hip, initial encounter (principal); W01.0XXA Fall on same level from slipping, tripping and stumbling without subsequent striking against object, initial encounter; Y92.39 Other specified sports and athletic area as the place of occurrence of the external cause | CPT/HCPCS: A0425; A0427 ==